=== PATIENT | female | born 1955 | race Caucasian/White ===

== ENCOUNTER 2019-07-02 21:18 | Observation (INO) ==
[2019-07-02] MEDS ORDERED: ONDANSETRON 4 MG/2 ML VIAL ONE (21:46)
[2019-07-02] MEDS ORDERED: PANTOPRAZOLE 40 MG VIAL IV ONE (21:47)
[2019-07-02] MEDS ORDERED: ONDANSETRON 4 MG/2 ML VIAL IV STA (21:47)
[2019-07-02] MEDS ORDERED: PANTOPRAZOLE 40 MG VIAL IV STA (21:47)
[2019-07-02 21:56] LABS: Basophils % 0.5 % (0.0-0.8); Eosinophils # 0.2 10*3/uL (0.0-0.87); Eosinophils % 2.2 % (0.00-10.9); Hematocrit 35.3 VOL% (35.7-47.0); Hemoglobin 11.5 GM/DL (12.0-16.0); Immature Granulocytes % 0.4 %; Immature Granulocytes Absolute 0.03 #; Lymphocytes # 2.6 10*3/uL (1.4-4.0); Lymphocytes % 32.3 % (21.3-54.2); Mean Corpuscular HGB Conc 32.6 GM/DL (32-36); Mean Corpuscular Volume 91.2 FL (87-102); Mean Platelet Volume 9.8 FL (9.6-12.0); Monocytes % 6.9 % (1.7-12.7); Neutrophils % 57.7 % (38.7-73.9); Platelet Count 209 T/CUMM (130-400); Red Blood Count 3.87 MC/CUMM (3.8-5.5); Red Cell Distribution Width 14.4 % (9.3-17.3); White Blood Count 8.1 T/CUMM (4-12)
[2019-07-02 22:04] LABS: PT Patient Result 10.4 SECS; Partial Thromboplastin Time 25.3 SECS (0-40)
[2019-07-02 22:13] LABS: Troponin I < 0.015 NG/ML (0.00-0.045)
[2019-07-02 22:19] LABS: Albumin 3.3 G/DL (3.4-5.0); Bilirubin,Total 0.4 MG/DL (0.2-1.0); Calcium 8.1 MG/DL (8.5-10.1); Osmolality,Calculated 288.7 MOS/KG (273-304); Total Protein 6.2 G/DL (6.4-8.3)
[2019-07-02] MEDS ORDERED: DICYCLOMINE 20 MG/2 ML AMP IM ONE (22:32)
[2019-07-02] MEDS ORDERED: SODIUM CHLORIDE 0.9% 1,000 ML IV STA (22:54)
[2019-07-03] MEDS ORDERED: ZALEPLON 5 MG CAPSULE PO PRN (00:20)
[2019-07-03 02:08] LABS: Troponin I < 0.015 NG/ML (0.00-0.045)
[2019-07-03 06:07] LABS: Troponin I < 0.015 NG/ML (0.00-0.045)
[2019-07-03 06:09] VITALS: BP 111/67
== END 2019-07-03 11:57 | disposition home or self-care (01) ==
LOC: EDBD → EDUNIT# → N.EDINP 21:18 → N.ED 21:18 → N.TELEN 23:49
PROVIDERS: ADMIT Internal Medicine Cardiovascular Disease; ATTEND Internal Medicine Cardiovascular Disease